=== PATIENT | female | born 1950 | race Caucasian/White ===

== ENCOUNTER → 2017-07-07 | Outpatient (CLI) | payer MEDICARE, BC ==
[~2017-07-07] MED LIST: ACET-683 PO; AMIT50TA PO; CHLO10CA PO; CLAR10CA3 PO; FLON1SPR; IBUP1TAB7 PO; NEXI40CA PO; PROAAER10 INH
--- NOTE | 2017-07-07 15:11 | REP ---
MAXILLOFACIAL CT WITHOUT CONTRAST: HISTORY: Chronic maxillary sinusitis. There is almost complete opacification of the left maxillary sinus. There is partial erosion of the medial wall of the left maxillary sinus, uncinate process and left middle nasal turbinate. There is soft tissue extension into the left nasal passage and inferior left ethmoid sinus. There appears to be a defect in the alveolar region of the left maxilla seen in coronal image #17 of series 403. Minimal mucosal thickening is present in the left frontal sinus. The remaining sinuses are clear. The right ostiomeatal unit is patent. The middle and inferior nasal turbinates are partially paradoxical. There is minimal deviation of the nasal septum to the left anteriorly and to the right posteriorly. The cribriform plate, medial nunez of the orbits and optic canals are intact. There is aeration of the right anterior clinoid process. The carotid canals form a segment of the posterolateral nunez of the sphenoid sinus. IMPRESSION: 1. There is almost complete opacification of the left maxillary sinus. This is associated with partial erosion of the medial wall of the left maxillary sinus, uncinate process and left middle nasal turbinate. There is extension of the soft tissue density into the left nasal passage and inferior left ethmoid sinus. This may represent chronic sinus mucosal thickening, however, the possibility of underlying lesion such as an antrochoanal polyp or inverting papilloma cannot be excluded. 2. There appears to be a defect in the alveolar ridge of the left maxillary seen in one image that is suspicious for an oromaxillary fistula. 3. Sinus mucosal thickening as described above. Signed by Alcides Wen MD 07/07/2017 03:19 P
== END ==
LOC: M RAD 14:13
PROVIDERS: ATTEND Otolaryngology
DX: J32.0 Chronic maxillary sinusitis (principal); M26 Dentofacial anomalies [including malocclusion]

== ENCOUNTER 2017-08-08 09:51 | Day surgery (SDC) | payer MEDICARE, BC ==
[~2017-08-08] VITALS: Ht 162.6 cm; Wt 113.4 kg
[~2017-08-08 09:51] MED LIST changes: -ACET-683 PO; -CLAR10CA3 PO; -FLON1SPR
[2017-08-08] MEDS ORDERED: LR 1,000 ML IV ONE (10:00)
[2017-08-08] MEDS ORDERED: FLON1SPR (11:17)
[2017-08-08] MEDS ORDERED: CLAR10CA3 PO (11:17)
[2017-08-08] MEDS ORDERED: ACET-683 PO (11:17)
[2017-08-08] MEDS ORDERED: ALBUTEROL SULFATE 2.5 MG/0.5 ML INH NEB SOLN As Ordered ONE (11:32)
[2017-08-08] MEDS ORDERED: fentaNYL 100 MCG/2 ML INJECTION (J3010) As Ordered ONE (11:49)
[2017-08-08] MEDS ORDERED: MIDAZOLAM INJ 2 MG/2 ML VIAL (J2250) As Ordered ONE (11:50)
[2017-08-08] MEDS ORDERED: METHYLENE BLUE 0.5% (5MG/ML) 10 ML AMP (PROVAYBLUE)(Q9968 PER 1MG) As Ordered ONE (11:51)
[2017-08-08] MEDS ORDERED: EPINEPHrine 1MG/ML INJ 30ML MD-VIAL As Ordered ONE (11:52)
[2017-08-08] MEDS ORDERED: OXYMETAZOLINE NASAL SPRAY (AFRIN) As Ordered ONE (11:52)
[2017-08-08] MEDS ORDERED: LIDOCAINE W/EPINEPHRINE 1% 20ML VIAL As Ordered ONE (11:52)
[2017-08-08] MEDS ORDERED: ALBUTEROL SULFATE 2.5 MG/0.5 ML INH NEB SOLN INH ONE (12:00)
[2017-08-08] MEDS ORDERED: REMIFENTANIL 1MG 3ML VIAL As Ordered ONE ×2 (12:22→13:52)
[2017-08-08] MEDS ORDERED: PHENYLephrine HCL 500 MCG/5 ML (100MCG/ML) SYRINGE (J2370) As Ordered ONE (12:40)
[2017-08-08] MEDS ORDERED: ePHEDrine SULFATE 25 MG/5 ML(5MG/ML) SYRINGE As Ordered ONE (12:40)
--- NOTE | 2017-08-08 14:48 | ROOPDOC ---
[facility] Report Of Operation Report of Operation DATE OF PROCEDURE: 08/08/17 PREPROCEDURE DIAGNOSES: [Left chronic maxillary sinusitis with anterior ethmoid sinusitis and probable blockage of the left frontal sinus]. 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 PROCEDURE: [#1, Left frontal balloon sinus plasty with the Acclarent balloon. # 2 is endoscopic partial ethmoidectomy. #3 is endoscopic left maxillary sinustomy with biopsy of maxillary sinus. 4. Placement of Propel device in the left middle meatus]. SURGEON: [Tommy Cain Jr], NECK CUTTER: [None], MD ANESTHESIA: [Gen. via endotracheal tube.]. ESTIMATED BLOOD LOSS: Approximately [75 mL] mL. COMPLICATIONS: [None]. 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 PROCEDURE NOTE: [With the patient in the supine position after being induced and intubated, prepped and draped in usual fashion, and timeout was performed. Nasal cavity on the left side was decongested with Afrin. Utilizing the 30 endoscope. The base of the middle turbinate was injected with a 1%lidocaine 1 : 100,000 epinephrine solution. Also, part of the uncinate was injected as well as part of the middle turbinate medial portion. The middle turbinate was medialized. There significant polyposis in the left middle meatus. Next, utilizing the Acclarent balloon spin system. The frontal sinus was cannulated with the Lisa device and a focal lumination in the frontal sinus was present and would move with the spin. The balloon was deployed. Initially multiple dilations at 10 cm of H2O and then 12 cm of H2O presure. Next, attention was drawn to the maxillary sinusotomy site, which part of the medial wall of the left maxillary sinus had been medialized. Landmarks were obscured. Seeker was used to identify the site. Then the Lisa device was used to cannulate the area and balloon it open. This was dilated to a 12 cm as well. Because this was filled with what was compatible with aspergillosis. A formal left endoscopic maxillary antrostomy was performed with a Pietro system. Pediatric backbiter was used to make a small defect in the inferior aspect of the left approximate and the microdebrider was used to trim down the uncinate process. Polyps in the ethmoid area were also removed. Again this was done with the microdebrider. Utilizing straight through cut, the left antrostomy was enhance posteriorly to try and remove the hard concretions of the mass consistent with Aspergillus fungal ball. Once this was removed in portions were removed, part of this was sent for culture. Also, left frontal area was sent for aerobic, anaerobic cultures as well. The left maxillary sinus was sent for fungal. Utilizing the curet. The maxillary sinus was enhanced further as well as a backbiter, and a 70 was used, which showed still some more fungal ball anteriorly. Utilizing the giraffe frontal forcep. This was peeled off the anterior part of the maxillary sinus and then copious irrigations with multiple 60 mL syringes were used to copiously irrigate the fundus. Once this was done, the area was photo documented and also viewed with the cyclops and there was no more fungal material, left or debris left in the left maxillary sinus. Attention was then drawn back to re-cannulating the left frontal sinus and then again at the Lisa device identifying the area. This was copiously irrigated with saline and more frequent purulent material was irrigated and the frontal sinus. This was obese 120 mL. Frontal sinus ostium site was also photo documented and was patent. After this was done propel device was deployed. After anterior ethmoidectomy was done with the microdebrider system. At this point, the propel was hydrated and a trimmed nasal pore pack was placed in the left nasal cavity. Patient tolerated procedure well. There were no complications. No swelling of the orbit. ]. DESCRIPTION OF PROCEDURE: . TOMMY CAIN MD Aug 08, 2017 14:48
[2017-08-08] MEDS ORDERED: LR 1,000 ML IV SCH (15:00)
[2017-08-08] MEDS ORDERED: fentaNYL 100 MCG/2 ML INJECTION (J3010) IV PRN (15:00)
[2017-08-08] MEDS ORDERED: ONDANSETRON 4MG/2ML VIAL (J2405) IV PRN (15:00)
[2017-08-08 17:07] VITALS: BP 119/77
== END 2017-08-08 16:45 | disposition home or self-care (01) ==
LOC: M SDC 09:51
PROVIDERS: ATTEND Otolaryngology
DX: J32.0 Chronic maxillary sinusitis (principal); J32.2 Chronic ethmoidal sinusitis; J33.8 Other polyp of sinus; J30.1 Allergic rhinitis due to pollen; K21.9 Gastro-esophageal reflux disease without esophagitis; M12.9 Arthropathy, unspecified; M79.7 Fibromyalgia; F41.9 Anxiety disorder, unspecified; M54.9 Dorsalgia, unspecified; J45.909 Unspecified asthma, uncomplicated; Z88.0 Allergy status to penicillin; Z88.1 Allergy status to other antibiotic agents; Z88.2 Allergy status to sulfonamides; Z88.6 Allergy status to analgesic agent; Z88.8 Allergy status to other drugs, medicaments and biological substances; Z91.013 Allergy to seafood; Z91.041 Radiographic dye allergy status; Z91.09 Other allergy status, other than to drugs and biological substances; Z79.899 Other long term (current) drug therapy
CPT/HCPCS: 31254; 31267; 87070; 87075; 87076; 87102; 88305; C2625; J2250; J2370; J3010; Q9968

== ENCOUNTER → 2019-07-22 | Outpatient (REF) | payer MEDICARE, BC ==
[~2019-07-22] MED LIST changes: +ACET-683 PO; +CLAR10CA3 PO; +FLON1SPR
[2019-07-22 18:15] LABS: FOLATE 6.3 NG/ML
== END ==
LOC: M LABNEURO 13:42
PROVIDERS: ATTEND Psychiatry & Neurology Neurology
DX: D51.9 Vitamin B12 deficiency anemia, unspecified (principal); E51.9 Thiamine deficiency, unspecified; E83.01 Wilson's disease

== ENCOUNTER → 2020-03-21 | Outpatient (CLI) | payer MEDICARE, BC ==
--- NOTE | 2020-03-29 00:37 | ECWPNPC ---
PATIENT NAME: HI CANELA : 1950 GENDER: FEMALE VISIT DATE: 03/21/2020 DISCHARGE DATE: 03/21/20 1227 VISIT LOCKED DATE TIME: PHYSICIAN: VICENTA HORN RESOURCE: VICENTA HORN REASON FOR APPOINTMENT 1. CHRONIC NECK PAIN- AT DESK HISTORY OF PRESENT ILLNESS GENERAL: 70-YEAR-OLD FEMALE REFERRED BY PRIMARY CARE FOR CHRONIC NECK PAIN. PAIN BEGAN APPROXIMATELY ONE YEAR AGO. PAIN STARTED AFTER A FALL INJURY DUE TO VERTIGO. FOLLOWS WITH DR. MANZO FOR CHRONIC VERTIGO. CONTINUES WITH PERIODIC EPISODES OF VERTIGO. ATTENDED PHYSICAL THERAPY APPROXIMATELY 8 MONTHS AGO WITHOUT SIGNIFICANT IMPROVEMENT IN PAIN. DENIES RECENT FEVER, ILLNESS, OR SUDDEN WEIGHT LOSS. REVIEWED MRI OF THE CERVICAL SPINE AND DISCUSSED TREATMENT OPTIONS. - - -. FALL RISK SCREENING: SCREENING :TWO OR MORE FALLS WITH INJURY IN THE PAST YEAR PT USING WALKER FOR AMBULATION AID, HAS SEVERAL FALLS WITH REPORTS TO ED PAIN SCREENING: PATIENT HAS A COMPLAINT OF ACUTE OR CHRONIC PAIN :YES LOCATION OF PAIN:NECK INTENSITY OF PAIN (SCALE OF 1 TO 10):10 WHAT DOES YOUR PAIN FEEL LIKE:ACHING, BURNING, CONTINOUS, SHARP, STABBING, TENDER, THROBBING, SORE, SHOOTING DURATION:CONTINOUS, CONSTANT PAIN IS INCREASED BY:ACTIVITIES PAIN IS DECREASED BY:OTHERS REST NURSING NOTE: - - -. PAIN CENTER INTAKE QUESTIONS: DO YOU HAVE A HISTORY OF MRSA? :NO DO YOU TAKE A BLOOD THINNERS? :NO DO YOU HAVE ANY BLEEDING DISORDERS? :NO ANY NEW NUMBNESS OR WEAKNESS IN YOUR LEGS OR ARMS? :YES WEAKNESS IN RIGHT HAND AND SLIGHT WEAKNESS IN LEFT HAND ANY PACEMAKER,DEFIBRILLATOR, OR DORSAL COLUMN STIMULATOR? :NO DO YOU HAVE ANY RASHES OR OPEN SORES? :NO ARE YOU ALLERGIC TO IV DYE? :YES ARE YOU DIABETIC? :NO ANY NEW PROBLEMS WITH YOUR MEDICATIONS? :NO HAVE YOU RECEIVED A VACCINE IN THE PAST 30 DAYS? :NO DO YOU PLAN TO RECEIVE A VACCINE IN THE NEXT 21 DAYS? :NO DO YOU NEED ANY PRESCRIPTION? :NO DO YOU TAKE ANY IMMUNOSUPPRESSIVE MEDICATIONS? :NO CURRENT MEDICATIONS TAKING CHLORDIAZEPOXIDE HCL 10 MG CAPSULE 20 MG ORALLY BID TAKING IBUPROFEN 800 MG TABLET 1 TABLET WITH FOOD OR MILK NEEDED ORALLY THREE TIMES A DAY TAKING AMITRIPTYLINE HCL 50 MG TABLET 3 TABLETS ORALLY BEFORE BEDTIME TAKING FLONASE 50 MCG/DOSE INHALER 1 SPRAY IN EACH NOSTRIL NASALLY BID TAKING TOPIRAMATE 200 MG TABLET 1 TABLET ORALLY BEFORE BEDTIME TAKING EMGALITY 120 MG/ML SOLUTION PREFILLED SYRINGE 1 ML SUBCUTANEOUS MONTHLY NOT-TAKING MECLIZINE HCL 25 MG TABLET 1 TAB ORALLY THREE TIMES DAILY NEEDED MEDICATION LIST REVIEWED AND RECONCILED WITH THE PATIENT PAST MEDICAL HISTORY OBSTRUCTIVE SLEEP APNEA SPONDYLOSIS OF CERVICAL SPINE CERVICO-OCCIPITAL NEURALGIA NECK PAIN 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 DIZZINESS AND GIDDINESS ISOLATED SEIZURES SYNCOPE AND COLLAPSE 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 ANXIETY ALLERGIES PENICILLIN (FOR ALLERGIES USE ONLY) LYRICA SULFAMETHOXAZOLE CARBIDOPA-LEVODOPA BOTOX CEFACLOR NAPROXEN SURGICAL HISTORY CHOLECYSTECTOMY SINUS SURGERY BACK SURGERY FAMILY HISTORY FATHER: DIAGNOSED WITH UNSPECIFIED CEREBRAL ARTERY OCCLUSION WITH CEREBRAL INFARCTION MOTHER: UNSPECIFIED HEART DISEASE SOCIAL HISTORY 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 LATEX ALLERGY : HAVE YOU EVER DEVELOPED ANY TYPE OF REACTION AFTER HANDLING LATEX PRODUCTS SUCH RUBBER GLOVES, CONDOMS, DIAPHRAGMS, BALLOONS, SOCKS, OR UNDERWEAR?NO LATEX ALLERGY : HAVE YOU EVER DEVELOPED ANY TYPE OF REACTION DURING OR AFTER DENTAL APPOINTMENT, VAGINAL/RECTAL EXAMINATION, SURGICAL PROCEDURE, OR ANY OTHER EXPOSURE?NO LATEX RISK : HAVE YOU EVER HAD ANY DIFFICULTY BREATHING OR HIVES AFTER EATING OR HANDLING ANY FRUITS, OR VEGETABLES; SUCH KIWI, BANANAS, STONE FRUITS, OR CHESTNUTSNO LATEX RISK : DO YOU HAVE A PREVIOUS PERSONAL HISTORY OF MORE THAN NINE SURGERIES, SPINA BIFIDA, OR REPEATED CATHERIZATIONS? NO LATEX RISK : ARE YOU FREQUENTLY EXPOSED TO LATEX PRODUCTS IN YOUR OCCUPATION?NO DATE ASKED : 03/21/2020 ALCOHOL SCREENING DID YOU HAVE A DRINK CONTAINING ALCOHOL IN THE PAST YEAR?NO POINTS0 INTERPRETATIONNEGATIVE RECREATIONAL DRUG USE DRUG USE?NO CAFFEINE CAFFEINE USE?YES HOW OFTEN AND HOW MUCH? OCCASIONALLY, SODA OR TEA LEARNING BARRIERS / SPECIAL NEEDS BARRIERS TO LEARNING?NO HEARING IMPAIRED?NO VISION IMPAIRED?YES GLASSES READINESS TO LEARN?YES LEARNING PREFERENCES?YES WRITTEN LEARNING CAPABILITIES PRESENT?YES EMOTIONAL BARRIERS?NO POST TENSIONING IRONWORKER NEEDED?NO DOMESTIC VIOLENCE DO YOU FEEL SAFE IN YOUR ENVIRONMENT?YES DIET: REGULAR. MARITAL STATUS: . OTHERS AT HOME: NONE. LIVES ALONE WITH 3 CATS. NEW PATIENT PAIN DIARY TODAY'S VISIT 03/21/20 PATIENT DESCRIBES PAIN :ACHING, BURNING, HAVE IT ALL THE TIME, SHARP, STABBING, TENDER, THROBBING, SORE, SHOOTING FROM 0-10, WHAT LEVEL IS YOUR PAIN TODAY?10 PRECIPITATING FACTORS ACTIVITY ALLEVIATING FACTORS REST IMPACT ON FUNCTION UNABLE TO DAILY ACTIVITIES HAVE YOU BEEN SICK IN THE LAST WEEK (COLD, COUGH, FEVER, FLU, ETC)NO DO YOU TAKE ANY BLOOD THINNERS?NO DO YOU HAVE ANY RASHES OR OPEN SORES?NO ANY CHANGE IN BOWEL OR BLADDER CONTROL?NO ARE YOU ALLERGIC TO SHELLFISH OR IV DYE?NO ARE YOU DIABETIC?NO DO YOU HAVE A PACEMAKER OR DEFIBRILLATOR?NO ANY NEW PROBLEMS WITH MEDICINES OR NEW ALLERGIESNO ANY NEW PATTERNS OF PAIN OR NUMBNESS?NO ANY CHANGE IN YOUR MEDICAL CONDITION?NO HAVE YOU FALLEN IN THE LAST 6 MONTHS?YES DO YOU USE ANY TYPE OF TOBACCO (SMOKE, SMOKELESS, CHEW, ETC.)NO ARE YOU ABUSED, NEGLECTED, OR IN AN UNSAFE ENVIRONMENT?NO DO YOU HAVE THOUGHTS OF HURTING YOURSELF OR SOMEONE ELSE?NO DO YOU HAVE ANY OTHER QUESTIONS OR CONCERNS?NO INTENSITY SCALE REVIEWEDNUMBER PAIN CLINIC PFS, CLERGY, PUBLIC HEALTH REFERRALS WAS THE PROVIDER NOTIFIED OF ANY PERTINENT INFO?YES HAS THE PATIENT BEEN EDUCATED REGARDING HIS/HER PLAN OF CARE?YES HAS THE PATIENT BEEN EDUCATED REGARDING PAIN, THE RISK FOR PAIN, THE IMPORTANCE OF EFFECTIVE PAIN MANAGEMENT, AND THE PAIN ASSESSMENT PROCESS?YES ADVANCE DIRECTIVE ADVANCE DIRECTIVE DISCUSSED WITH PATIENT:YES HCP SHAMAR SANDERS [phone], LUIS MITCHELL [phone] HOSPITALIZATION/MAJOR DIAGNOSTIC PROCEDURE NO HOSPITALIZATION HISTORY. REVIEW OF SYSTEMS CONSTITUTIONAL: ANY RECENT FEVER NO . ANY CHANGE IN YOUR MEDICAL CONDITION? NO . CHILLS NO . MUSCULOSKELETAL: ANY UNUSUAL JOINT PAIN OR SWELLING NOT MENTIONED NO . SYSTEMIC LUPUS NO . LYME DISEASE NO . GASTROENTEROLOGY: ANY NEW CHANGE IN BOWEL CONTROL? NO . BARRETTS ESOPHAGUS NO . CIRRHOSIS NO . HEPATITIS NO . HISTORY OF LIVER DISORDER NOT MENTIONED NO . NO HISTORY OF UNUSUAL ABDOMINAL PAIN OR CRAMPING NOT MENTIONED. ACID REFLUX NO . NO ANOREXIA. NO CONSTIPATION. NO CRAMPING. NO NAUSEA. NO RECTAL BLEEDING. NO VOMITING. UNEXPLAINED WEIGHT LOSS NO . GENITOURINARY: ANY NEW CHANGE IN BLADDER CONTROL? NO . IS THERE A CHANCE YOU COULD BE ? NO . NEUROLOGY: HEAD INJURY NO . NEW ONSET DIZZINESS OR NEUROLOGICAL CHANGES NOT MENTIONED YES HAS CHRONIC CONDITION OF VERTIGO.FOLLOWS WITH [facility]UR[facility] . HISTORY OF SEVERE HEADACHES NOT MENTIONED NO . HISTORY OF STROKE OR NEUROLOGICAL DISORDER NOT MENTIONED NO . VERTIGO NO . CARDIOLOGY: ANGINA NO . HEART ATTACK NO . HEART SURGERY NO . CONGESTIVE HEART FAILURE/FLUID OVERLOAD NOT MENTIONED NO . HISTORY OF CHEST PAIN,IRREGULAR HEART BEAT NOT MENTIONED NO . HIGH BLOOD PRESSURE NO . IRREGULAR HEART BEAT NO . RESPIRATORY: SLEEP APNEA NO . ASTHMA NO . SHORTNESS OF BREATH ON EXERTION, WHEEZES, UNUSUAL COUGH NOT MENTIONED NO . COUGH NO . WHEEZING NO . ENDOCRINOLOGY: ADRENAL GLAND OR THYROID DISORDERS NOT MENTIONED NO . THYROID DISORDER NO . VITAL SIGNS WT 265.0 LBS, HT 54 IN, BMI 63.89 INDEX, BP 146/73 MM HG, HR 96 /MIN, RR 18 /MIN, TEMP 98.4 F, OXYGEN SAT % 98%, SAFE IN ENV? (Y/N) Y, NA INITIALS AW 1132, REVIEWED BY: ANDRESSA. EXAMINATION GENERAL EXAMINATION: GENERALNO ACUTE DISTRESS, WELL NOURISHED AND HYDRATED. BLOCKS WITH ASSISTIVE A WALKER. PSYCHAPPROPRIATE MOOD AND AFFECT . HEENT:EOMI, NO SCLERAL ICTERUS, NARES PATENT, ORAL MUCOSA MOIST. FACE:UNREMARKABLE. NECK:NO LYMPHADENOPATHY, SUPPLE, . LUNGS:CLEAR TO AUSCULTATION BILATERALLY, NO WHEEZES, RHONCHI, RALES. HEART:NO MURMURS, REGULAR RATE AND RHYTHM. CERVICAL: TRIGGER POINTS:, ELICITED WITH PALPATION OVER CERVICAL SPINOUS PROCESSES AND ACROSS THE TRAPEZIUS MUSCLES BILATERALLY. RESTRICTION OF ROM IS NOTED.. DIAGNOSTIC TESTS REVIEWEDMRI CERVICAL SPINE . ASSESSMENTS MYALGIA OF MUSCLE OF NECK - M79.18 (PRIMARY) CERVICALGIA - M54.2 TREATMENT MYALGIA OF MUSCLE OF NECK NOTES: BILATERAL CERVICAL TRIGGER POINT INJECTION. OTHERS NOTES: TRIGGER POINT INJECTION MATERIAL WAS PRINTED. PREVENTIVE MEDICINE PAIN CLINIC TEACHING: THE PATIENT HAS BEEN EDUCATED REGARDING HIS/HER PLAN OF CARE :YES (PLEASE DOCUMENT ADDTIONAL DETAILS IN THE FREE TEXT NOTES SECTION) PT EDUCATED REGARDING WRITTEN AND VERBAL INSTRUCTIONS FOR PRE-PROCEDURE INSTRUCTIONS AND PLAN OF CARE. PT ACKNOWLEDGED UNDERSTANDING, ANDRESSA PROCEDURE CODES FA211 ESTABILISHED PATIENT [facility] CHARGE DISPOSITION & COMMUNICATION FOLLOW UP POST (REASON: BILATERAL CERVICAL TRIGGER POINT INJECTION) ELECTRONICALLY SIGNED BY HOMER MONTEZ ON 03/28/2020 AT 01:13 PM EDT DISCLAIMER : THIS IS A VISIT SUMMARY EXTRACTED FROM THE [employer] CHART. IT IS NOT A COPY OF THE [employer] PROGRESS NOTE. SHOBHAD
== END ==
LOC: M PAIN 11:00
PROVIDERS: ATTEND Nurse Practitioner Family
DX: M79.18 Myalgia, other site (principal); M54.2 Cervicalgia; Z79.899 Other long term (current) drug therapy; Z88.0 Allergy status to penicillin; Z88.8 Allergy status to other drugs, medicaments and biological substances

== ENCOUNTER → 2020-04-10 | Outpatient (CLI) | payer MEDICARE | LOC: M LABSMTC 12:29 | PROVIDERS: ATTEND Anesthesiology | DX: Z11.59 Encounter for screening for other viral diseases (principal) | CPT/HCPCS: C9803; U0003 ==

== ENCOUNTER → 2020-04-13 | Outpatient (CLI) | payer MEDICARE, BC ==
[~2020-04-13] MED LIST changes: +BUPIVACAINE HCL 0.25% 10ML VIAL As Ordered ONE; +BUPIVACAINE HCL 0.25% 30ML VIAL As Ordered ONE
--- NOTE | 2020-04-15 01:29 | ECWPNPC ---
PATIENT NAME: HI CANELA : 1950 GENDER: FEMALE VISIT DATE: 04/13/2020 DISCHARGE DATE: 04/13/20 1436 VISIT LOCKED DATE TIME: PHYSICIAN: SHANTANU CASILLAS MD RESOURCE: SHANTANU CASILLAS MD REASON FOR APPOINTMENT 1. TPI BILAT CERVICAL/ PAT STARTED HISTORY OF PRESENT ILLNESS GENERAL: -. FALL RISK SCREENING: SCREENING :TWO OR MORE FALLS WITHOUT INJURY IN THE PAST YEAR JUST LOSES HER BALANCE PAIN SCREENING: PATIENT HAS A COMPLAINT OF ACUTE OR CHRONIC PAIN :YES LOCATION OF PAIN: NECK INTENSITY OF PAIN (SCALE OF 1 TO 10): 8 DURATION:CONSTANT PAIN IS INCREASED BY:ACTIVITIES NURSING NOTE: -. PAIN CENTER INTAKE QUESTIONS: DO YOU HAVE A HISTORY OF MRSA? :NO DO YOU TAKE A BLOOD THINNERS? :NO DO YOU HAVE ANY BLEEDING DISORDERS? :NO ANY NEW NUMBNESS OR WEAKNESS IN YOUR LEGS OR ARMS? :NO ANY PACEMAKER,DEFIBRILLATOR, OR DORSAL COLUMN STIMULATOR? :NO DO YOU HAVE ANY RASHES OR OPEN SORES? :NO ARE YOU ALLERGIC TO IV DYE? :YES ARE YOU DIABETIC? :NO ANY NEW PROBLEMS WITH YOUR MEDICATIONS? :NO HAVE YOU RECEIVED A VACCINE IN THE PAST 30 DAYS? :NO DO YOU PLAN TO RECEIVE A VACCINE IN THE NEXT 21 DAYS? :NO DO YOU TAKE ANY IMMUNOSUPPRESSIVE MEDICATIONS? :NO ANY HISTORY OF SEIZURES? :NO ANY HISTORY OF CARDIAC ISSUES OR EVENTS? :YES CVA DO YOU HAVE SLEEP APNEA? :NO ANY RECENT HEAD INJURY? :NO DO YOU HAVE ANY NEW INFECTIONS? :NO IS THERE A CHANCE YOU COULD BE ? :NO ARE YOU BREAST FEEDING? :NO WHEN DID YOU LAST EAT? : -LAST NIGHT 233- WHEN DID YOU LAST DRINK? : -THIS MORNING 0800 WHAT DID YOU LAST DRINK? : -ATER NAME OF PERSON DRIVING YOU HOME? : SHAMAR ORR-FRIEND DO YOU HAVE ANY OTHER QUESTIONS OR CONCERNS? : NONE CURRENT MEDICATIONS TAKING CHLORDIAZEPOXIDE HCL 10 MG CAPSULE 20 MG ORALLY BID, NOTES: 04-13-20 0700 TAKING IBUPROFEN 800 MG TABLET 1 TABLET WITH FOOD OR MILK NEEDED ORALLY THREE TIMES A DAY, NOTES: 04-12-20 2100 TAKING AMITRIPTYLINE HCL 50 MG TABLET 3 TABLETS ORALLY BEFORE BEDTIME, NOTES: 04-12-202099 TAKING FLONASE 50 MCG/DOSE INHALER 1 SPRAY IN EACH NOSTRIL NASALLY BID-USES NEEDED, NOTES: 04-13-20799 TAKING TOPIRAMATE 200 MG TABLET 1 TABLET ORALLY BEFORE BEDTIME, NOTES: 04-12-202099 TAKING EMGALITY 120 MG/ML SOLUTION PREFILLED SYRINGE 1 ML SUBCUTANEOUS MONTHLY, NOTES: BEGINNING OF THE MONTAHT TAKING ESOMEPRAZOLE MAGNESIUM 40 MG CAPSULE DELAYED RELEASE 1 CAPSULE ORALLY ONCE A DAY, NOTES: 04-13-20799 TAKING ADVAIR DISKUS 100-50 MCG/DOSE MISCELLANEOUS 1 PUFF INHALATION DAILY PRN, NOTES: 04-13-20799 TAKING ALBUTEROL SULFATE HFA 108 (90 BASE) MCG/ACT AEROSOL SOLUTION 1-2 PUFFS INHALATION EVERY 4 HRS NEEDED, NOTES: NOT LATELY TAKING EPIPEN 0.3 MG/0.3ML SOLUTION AUTO-INJECTOR DIRECTED INJECTION , NOTES: NOT LATELY NOT-TAKING MECLIZINE HCL 25 MG TABLET 1 TAB ORALLY THREE TIMES DAILY NEEDED MEDICATION LIST REVIEWED AND RECONCILED WITH THE PATIENT PAST MEDICAL HISTORY OBSTRUCTIVE SLEEP APNEA-PATIENT DENIES-HAS NEVER BEEN TESTED FOR IT SPONDYLOSIS OF CERVICAL SPINE CERVICO-OCCIPITAL NEURALGIA NECK PAIN 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 DIZZINESS AND GIDDINESS ISOLATED SEIZURES SYNCOPE AND COLLAPSE 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 ANXIETY CONCUSSION ALLERGIES PENICILLIN (FOR ALLERGIES USE ONLY): ANAPHYLAXIS - ALLERGY LYRICA: ANAPHYLAXIS - ALLERGY SULFAMETHOXAZOLE: ANAPHYLAXIS - ALLERGY CARBIDOPA-LEVODOPA: ANAPHYLAXIS - ALLERGY BOTOX: ANAPHYLAXIS - ALLERGY CEFACLOR: ANAPHYLAXIS - ALLERGY NAPROXEN: ANAPHYLAXIS - ALLERGY IVP DYE: ANAPHYLAXIS - ALLERGY SEA FOOD: ANAPHYLAXIS - ALLERGY COTTON SWABS: NUMB TONGUE AND BACK O F THROAT - ALLERGY SURGICAL HISTORY CHOLECYSTECTOMY SINUS SURGERY-BONE SPUR RIGHT SINUS BACK SURGERY CARPAL TUNNEL-BILATERAL BILATERAL CATARACT REMOVAL WITH LENS IMPLANT MOLE REMOVED FROM RIGHT ARM WITH BIOPSY WHICH WAS (-) MASS REMOVED FROM RIGHT UNDERARM WITH BIOPSY WHICH WAS (-) MASS REMOVED FROM LEFT SINUS WITH BIOPSY WHICH WAS (-) 08/2017 FAMILY HISTORY FATHER: DIAGNOSED WITH UNSPECIFIED CEREBRAL ARTERY OCCLUSION WITH CEREBRAL INFARCTION MOTHER: UNSPECIFIED HEART DISEASE SOCIAL HISTORY GENERAL: TOBACCO USE ARE YOU A:NONSMOKER LATEX QUESTIONNAIRE LATEX ALLERGY : HAVE YOU EVER DEVELOPED ANY TYPE OF REACTION AFTER HANDLING LATEX PRODUCTS SUCH RUBBER GLOVES, CONDOMS, DIAPHRAGMS, BALLOONS, SOCKS, OR UNDERWEAR?NO LATEX ALLERGY : HAVE YOU EVER DEVELOPED ANY TYPE OF REACTION DURING OR AFTER DENTAL APPOINTMENT, VAGINAL/RECTAL EXAMINATION, SURGICAL PROCEDURE, OR ANY OTHER EXPOSURE?NO LATEX RISK : HAVE YOU EVER HAD ANY DIFFICULTY BREATHING OR HIVES AFTER EATING OR HANDLING ANY FRUITS, OR VEGETABLES; SUCH KIWI, BANANAS, STONE FRUITS, OR CHESTNUTSNO LATEX RISK : DO YOU HAVE A PREVIOUS PERSONAL HISTORY OF MORE THAN NINE SURGERIES, SPINA BIFIDA, OR REPEATED CATHERIZATIONS? NO LATEX RISK : ARE YOU FREQUENTLY EXPOSED TO LATEX PRODUCTS IN YOUR OCCUPATION?NO DATE ASKED : 04/12/2020 ALCOHOL SCREENING DID YOU HAVE A DRINK CONTAINING ALCOHOL IN THE PAST YEAR?NO POINTS0 INTERPRETATIONNEGATIVE RECREATIONAL DRUG USE DRUG USE?NO CAFFEINE CAFFEINE USE?YES HOW OFTEN AND HOW MUCH?NULL OCCASIONALLY, SODA OR TEA LANGUAGE LANGUAGES SPOKEN:BELIZEAN LEARNING BARRIERS / SPECIAL NEEDS BARRIERS TO LEARNING?YES HAS PROBLEMS REMEMBERING THINGS HEARING IMPAIRED?NO VISION IMPAIRED?YES :CORRECTIVE LENSES COGNITIVELY IMPAIRED?NO READINESS TO LEARN?YES LEARNING PREFERENCES?YES WRITTEN LEARNING CAPABILITIES PRESENT?YES EMOTIONAL BARRIERS?NO SPECIAL DEVICES?YES :WALKER ON OCCASSIONS 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 MARITAL STATUS: . OTHERS AT HOME: NONE. LIVES ALONE WITH 3 CATS. PAIN CLINIC PFS, CLERGY, PUBLIC HEALTH REFERRALS WAS THE PROVIDER NOTIFIED OF ANY PERTINENT INFO?YES HAS THE PATIENT BEEN EDUCATED REGARDING HIS/HER PLAN OF CARE?YES HAS THE PATIENT BEEN EDUCATED REGARDING PAIN, THE RISK FOR PAIN, THE IMPORTANCE OF EFFECTIVE PAIN MANAGEMENT, AND THE PAIN ASSESSMENT PROCESS?YES ADVANCE DIRECTIVE ADVANCE DIRECTIVE DISCUSSED WITH PATIENT:YES HCP SHAMAR SANDERS [phone], LUIS MITCHELL [phone] HOSPITALIZATION/MAJOR DIAGNOSTIC PROCEDURE SURGERY SEVERAL TIMES FOR LARYNGEAL SPASMS/AND DIFFICULTY BEATHING VITAL SIGNS WT 259.6 LBS, HT 54 IN, BMI 62.59 INDEX, BP 130/67 MM HG, HR 92 /MIN, RR 18 /MIN, TEMP 96.6 F, OXYGEN SAT % 96%, SAFE IN ENV? (Y/N) YES, NA INITIALS SC 12:59, REVIEWED BY: KG. EXAMINATION GENERAL EXAMINATION: THE PATIENT IS ALERT, ORIENTED TIMES THREE AND COOPERATIVE. HEART SHOWS REGULAR RHYTHM, NO MURMURS AND NO GALLOPS. LUNGS ARE CLEAR TO AUSCULTATION. ASSESSMENTS MYALGIA, OTHER SITE - M79.18 (PRIMARY) PROCEDURES PAIN NURSING RECORD PROCEDURE IN ROOM 1200, PHYSICIAN IN ROOM 1420, START 1423, FINISH 1429, PHYSICIAN OUT OF ROOM 1429, OUT OF ROOM 1430, STEROID NONE, O2 ROOM AIR, ECG NONE TAKEN, PATIENT SHIELDED NA, SAFETY STRAP NA, IV INFUSED DR CASILLAS, DRESSING APPLIED BY KURT NGUYEN LOC: 1. ALERT, ORIENTED RESP: 1. REGULAR, NO DYSPNEA COLOR: 1. PINK SKIN: 1. WARM, DRY POSITION: 4. OTHERSITTING VITALS: 132/65 88 18 99% 18 PT STATES PAIN IS ALL GONE DISCHARGE: POST PAIN 0, DRESSING SITE DRY AND INTACT, TEACHING COMPLETED, PATIENT ACKNOWLEDGES UNDERSTANDING WENT OVER DISCHARGE INSTRUCTIONS INCLUDING THE PAIN DIARY PT VERBALZIES UNDERSTANDING, PATIENT DISCHARGED AT 1435 PN TRIGGER POINT INJECTION NO STEROIDS DATE OF PROCEDURE : PRE PROCEDURE DIAGNOSIS 1. MYALGIA 2. PAIN AT BILATERAL NECK AREA POST PROCEDURE DIAGNOSIS 1. MYALGIA 2. PAIN AT BILATERAL NECK AREA PROCEDURE TRIGGER POINT INJECTION AT BILATERAL NECK AREA SURGEON DR. SHANTANU CASILLAS FLAKER OPERATOR NONE ANESTHESIA LOCAL PRE PROCEDURE NOTE THE PATIENT WITH HISTORY OF CHRONIC PAIN AT RIGHT AND LEFT NECK AREA. I EVALUATED THE PATIENT AND REVIEWED THE CHART. THERE IS EVIDENCE OF BANDS OF TISSUE WITH RESTRICTION OF MOVEMENT AND PRESENCE OF TRIGGER POINT AT THE RIGHT AND LEFT NECK AREA. I WENT OVER THE RISKS, ALTERNATIVES, AND BENEFITS ASSOCIATED WITH THIS PROCEDURE. THE PATIENT WOULD LIKE TO PROCEED AND GAVE CONSENT TO PERFORM THE PROCEDURE. THE PATIENT DENIES UNEXPLAINABLE WEIGHT LOSS, FEVER, CHILLS, OR NEW CHANGES IN URINARY OR BOWEL CONTROL DESCRIPTION OF PROCEDURE THE PATIENT WAS BROUGHT TO THE PROCEDURE ROOM AND PLACED IN THE SITTING POSITION. THE AREA WAS CLEANED WITH ALCOHOL. THE PROCEDURE WAS DONE USING ASEPTIC STERILE TECHNIQUES. I CHECKED LATERALITY AND THE LEVEL WHERE THE PROCEDURE WAS GOING TO BE PERFORMED WITH THE PATIENT AND THE SUPPORTING STAFF AT THE MOMENT OF THE TIME OUT IN THE PROCEDURE ROOM. USING A 25-GAUGE NEEDLE, TRIGGER POINTS WERE INJECTED INTO THE RIGHT AND LEFT NECK AREA WITH A TOTAL OF 40 ML OF BUPIVACAINE 0.25%. AGREED WITH THE PATIENT THE PROCEDURE WAS DONE WITHOUT STEROIDS. THERE WAS NO EVIDENCE OF BLOOD, PARESTHESIA OR CEREBROSPINAL FLUID DURING THE PROCEDURE. THE PATIENT WAS SENT TO THE RECOVERY ROOM. THE PATIENT WAS MOVING THE EXTREMITIES AND DOING WELL. THERE WAS NO COMPLICATION DURING THE PROCEDURE. EBL LESS THAN 5 ML POST PROCEDURE NOTE DEPENDING ON THE RESULTS, WE CAN CONSIDER BILATERAL NECK AND BILATERAL SHOULDER TRIGGER POINT INJECTIONS WITH STEROIDS. THE PROCEDURE DONE WAS DISCUSSED WITH THE PATIENT. THE PATIENT WILL BE SEEN IN A FOLLOW UP IN THE NEXT FEW WEEKS. I AM LOOKING FOR LONG LASTING PAIN RELIEF FOR THE PATIENT WITH THIS INTERVENTION. INSTRUCTIONS WERE GIVEN, QUESTIONS WERE ANSWERED, AND THE PATIENT EXPRESSED UNDERSTANDING AND AGREES WITH THE PLAN. I, ROBBIN REESE, DOCUMENTED THE ABOVE INFORMATION ACTING A SCRIBE FOR DR. CASILLAS. I HAVE REVIEWED THE ABOVE DOCUMENT, WRITTEN BY ROBBIN REESE, PARTY PLANNER, AND I VERIFY THAT IT IS ACCURATE PROCEDURE CODES 12215 INJ TRIGGER POINT / MUSC DISPOSITION & COMMUNICATION FOLLOW UP F/UP WITH GASOLINE CATALYST OPERATOR (REASON: POST TPI LUANNE NECK) ELECTRONICALLY SIGNED BY SHANTANU CASILLAS MD, MD ON 04/14/2020 AT 12:27 PM EDT DISCLAIMER : THIS IS A VISIT SUMMARY EXTRACTED FROM THE [employer] CHART. IT IS NOT A COPY OF THE [employer] PROGRESS NOTE. GUERITA
== END ==
LOC: M PAIN 11:45
PROVIDERS: ATTEND Anesthesiology
DX: M79.18 Myalgia, other site (principal)